=== PATIENT | male | born 1990 | race Two or more races ===

== ENCOUNTER 2022-05-21 04:28 | Emergency (ER) | payer SELFPAY ==
[~2022-05-21] VITALS: Ht 188 cm; Wt 104.3 kg
[2022-05-21] MEDS ORDERED: Magnesium 1GM/D5W 100ML PREMIX 100 ML IV ONE (04:44)
[2022-05-21] MEDS ORDERED: methylPREDNISolone SOD SUCC 125 MG/2ML VIAL ONE (04:44)
--- NOTE | 2022-05-21 04:49 | NUR ---
TO ER BED 1. BIBS C/O SOB X2 DAYS, NOT RELEIVED BY PRESCRIBED ALBUTEROL. PT IS ALERT AND ORIENTED. AMBULATORY WITH STEADY GAIT. BREATHING IS TACHYPNEIC UPPON ARRIVAL WITH AUDIBLE WHEEZES . O2 SAT NOTED AT 91 ROOM AIR, CONNECTED TO NASAL CANNULA 4L. CONNECTED TO MONITOR. RT PAGED STAT. MD AT BEDSIDE.
--- NOTE | 2022-05-21 04:52 | NUR ---
IV LINE ESTABLISHED, [id number]
[2022-05-21] MEDS ORDERED: IPRATROPIUM NEB FS 0.5 MG/2.5 ML AMPUL.NEB NEB ONE (05:00)
[2022-05-21] MEDS ORDERED: Magnesium 1GM/D5W 100ML PREMIX 200 ML IV ONE (05:00)
[2022-05-21] MEDS ORDERED: ALBUTEROL FS 2.5 MG/3 ML VIAL.NEB CONTNEB ONE (05:00)
[2022-05-21] MEDS ORDERED: methylPREDNISolone SOD SUCC 125 MG/2ML VIAL IV ONE (05:00)
--- NOTE | 2022-05-21 05:00 | NUR ---
SANDY HOOKER AT BEDSIDE FOR EKG
[2022-05-21] MEDS ORDERED: ONDANSETRON HCL/PF 4 MG/2 ML VIAL ONE (05:09)
[2022-05-21] MEDS ORDERED: ALBUTEROL FS 2.5 MG/3 ML VIAL.NEB ONE (05:14)
[2022-05-21] MEDS ORDERED: IPRATROPIUM NEB FS 0.5 MG/2.5 ML AMPUL.NEB ONE (05:14)
[2022-05-21] MEDS ORDERED: ONDANSETRON HCL/PF 4 MG/2 ML VIAL IV ONE (05:30)
[2022-05-21] MEDS ORDERED: PRED50TA PO (06:07)
--- NOTE | 2022-05-21 06:47 | NUR ---
Patient discharged to home in stable condition. Written and verbal after care instructions given. Patient verbalizes understanding of instruction.
[2022-05-21 06:49] VITALS: BP 140/70
== END 2022-05-21 06:49 | disposition home or self-care (01) ==
LOC: ER 04:34
DX: J98.01 Acute bronchospasm (principal); Z79.899 Other long term (current) drug therapy
CPT/HCPCS: 99285; 96374; 96375; 94644; J2930; J2405; J3475